=== PATIENT | female | born 1955 | race Caucasian/White ===

== ENCOUNTER 2020-11-18 13:13 | Emergency (ER) | payer MEDICARE, OTHER ==
[~2020-11-18] VITALS: Ht 157.5 cm; Wt 60.0 kg
[~2020-11-18 13:13] MED LIST: ACET325T9 PO; AMLO-186 PO; ASPI81TA59 PO; ATOR40TA59 PO; DIPH25CA23 PO; DULA0.75 SQ; HALO100V IM; LEVO175T5 PO; LEVO750T31 PO; MELA5CAP PO; METF10007 PO; MIRT-36 PO
--- NOTE | 2020-11-18 13:36 | PHYS DOC ---
Past Medical History Past Medical History: Anxiety, Diabetes-Type II, Hypertension, Hypothyroid, Schizophrenia, Other Additional Past Medical Histor: DYSPHAGIA, APHASIA, GEN MUSCLE WEAKNESS Past Surgical History: Other Additional Past Surgical Histo: UNKNOWN Smoking Status: Never Smoker Alcohol Use: None General Adult EDM: Chief Complaint: ASPIRATION HPI: HPI: Patient is a 64-year-old female who has history of stroke in the past, difficulty swallowing history, [facility], she was eating and choked on her food. Therefore she was brought here for evaluation, her chest x-ray was normal, patient was in no acute distress, she feel much better n ow, denies any chest pain, no cough, no fever, no trouble breathing. Review of Systems: Review of Systems: Constitutional: Denies fever or chills. [] Eyes: Denies change in visual acuity. [] HENT: Denies nasal congestion or sore throat. [] Respiratory: Denies cough or shortness of breath. [] Cardiovascular: Denies chest pain or edema. [] GI: Denies abdominal pain, nausea, vomiting, bloody stools or diarrhea. [] : Denies dysuria. [] Musculoskeletal: Denies back pain or joint pain. [] Integument: Denies rash. [] Neurologic: Denies headache, focal weakness or sensory changes. [] Endocrine: Denies polyuria or polydipsia. [] Lymphatic: Denies swollen glands. [] Psychiatric: Denies depression or anxiety. [] Heart Score: Risk Factors: Risk Factors: DM, Current or recent (<one month) smoker, HTN, HLP, family history of CAD, obesity. Risk Scores: Score 0 - 3: 2.5% MACE over next 6 weeks - Discharge Home Score 4 - 6: 20.3% MACE over next 6 weeks - Admit for Clinical Observation Score 7 - 10: 72.7% MACE over next 6 weeks - Early Invasive Strategies Allergies: Allergies: Allergies Coded Allergies Type Severity Reaction Last Updated Verified codeine Allergy Intermediate 20 Yes Physical Exam: PE: Constitutional: Well developed, well nourished, no acute distress, non-toxic appearance. [] HENT: Normocephalic, atraumatic, bilateral external ears normal, oropharynx moist, no oral exudates, nose normal. [] Eyes: PERRLA, EOMI, conjunctiva normal, no discharge. [] Neck: Normal range of motion, no tenderness, supple, no stridor. [] Cardiovascular:Heart rate regular rhythm, no murmur [] Lungs & Thorax: Bilateral breath sounds clear to auscultation [] Abdomen: Bowel sounds normal, soft, no tenderness, no masses, no pulsatile masses. [] Skin: Warm, dry, no erythema, no rash. [] Back: No tenderness, no CVA tenderness. [] Extremities: No tenderness, no cyanosis, no clubbing, ROM intact, no edema. [] Neurologic: awake, alert Psychologic: Affect normal, judgement normal, mood normal. [] EKG: EKG: [] Radiology/Procedures: Radiology/Procedures: [][facility] [address] [place] [address] IMAGING REPORT Signed PATIENT: CRISELDA ARCE ACCOUNT: [id number] : 1955 LOCATION: ER AGE: 64 SEX: F EXAM STATUS: PRE ER ORD. PHYSICIAN: SANDRINE LOWE DO REASON: aspirating food PROCEDURE: CHEST AP ONLY EXAM: Chest, single view. HISTORY: Aspiration. COMPARISON: 01/07/2020 FINDINGS: A frontal view of the chest obtained. There is no infiltrate, pleural effusion or pneumothorax. The heart is normal in size. There is decreased left subacromial space likely due to an incidental rotator cuff tear. IMPRESSION: No acute pulmonary finding. Electronically signed by: Vania Garcia MD (11/18/2020 1:58 PM) [facility] DICTATED and SIGNED BY: VANIA GARCIA MD DATE: 11/18/20 [id number] Course & Med Decision Making: Course & Med Decision Making Pertinent Labs and Imaging studies reviewed. (See chart for details) Patient is a 64-year-old female who has history of stroke in the past, difficulty swallowing history, [facility], she was eating and choked on her food. Therefore she was brought here for evaluation, her chest x-ray was normal, patient was in no acute distress, she feel much better now, denies any chest pain, no cough, no fever, no trouble breathing. [facility]. Dragon Disclaimer: Dragon Disclaimer: This electronic medical record was generated, in whole or in part, using a voice recognition dictation system. Departure Departure Impression: Primary Impression: Aspiration of food Disposition: 01 DC HOME SELF CARE/HOMELESS Condition: STABLE Referrals: CHARLES PEREZ MD (PCP) follow up with your doctor as needed Patient Instructions: Aspiration Precautions Additional Instructions: Thank you for visiting our Emergency Department. We appreciate you trusting us with your care. If any additional problems come up don't hesitate to return to visit us. Please follow up with your primary care provider so they can plan additional care if needed and know about the problem that you had. If symptoms worsen come back to the Emergency Department. Any concerning symptoms that start such as chest pain, shortness of air, weakness or numbness on one side of the body, running high fevers or any other concerning symptoms return to the ER. SANDRINE LOWE DO Nov 18, 2020 13:36
--- NOTE | 2020-11-18 14:01 | RAD ---
EXAM: Chest, single view. HISTORY: Aspiration. COMPARISON: 01/07/2020 FINDINGS: A frontal view of the chest obtained. There is no infiltrate, pleural effusion or pneumotho rax. The heart is normal in size. There is decreased left subacromial space likely due to an incident al rotator cuff tear. IMPRESSION: No acute pulmonary finding. Electronically signed by: Vania Sparks MD (11/18/2020 1:58 PM) [facility]
[2020-11-18 16:05] VITALS: BP 118/72
== END 2020-11-18 19:19 | disposition home or self-care (01) ==
LOC: ER 13:13
DX: T17.920A Food in respiratory tract, part unspecified causing asphyxiation, initial encounter (principal); E11.9 Type 2 diabetes mellitus without complications; I10 Essential (primary) hypertension; E03.9 Hypothyroidism, unspecified; F20.9 Schizophrenia, unspecified; F41.9 Anxiety disorder, unspecified; Z86.73 Personal history of transient ischemic attack (TIA), and cerebral infarction without residual deficits; Z88.5 Allergy status to narcotic agent; X58.XXXA Exposure to other specified factors, initial encounter; Y93.89 Activity, other specified; Y92.89 Other specified places as the place of occurrence of the external cause; Y99.8 Other external cause status
CPT/HCPCS: 71045; 99285-25

== ENCOUNTER 2021-05-24 22:59 | Emergency (ER) | payer MEDICARE, OTHER ==
[~2021-05-24] VITALS: Ht 162.6 cm; Wt 51.5 kg
--- NOTE | 2021-05-24 23:11 | ED.ADGEN ---
Past Medical History Past Medical History: Anxiety, Arthritis, CVA, Diabetes-Type II, High Cho lesterol, Hypertension, Hypothyroid, Schizophrenia, Other Additional Past Medical Histor: DYSPHAGIA, APHASIA, GEN MUSCLE WEAKNESS Past Surgical History: Other Additional Past Surgical Histo: UNKNOWN Smoking Status: Never Smoker Alcohol Use: None General Adult HPI: HPI: Patient is a 65 year old female brought in from nursing facility after a fall. Patient rolled out of bed and hit her head on the floor causing a laceration above her left eyebrow. There was no loss of consciousness. Patient is alert and oriented x1 and is at her baseline per EMS report. Patient is not on blood thinners per documentation sent, last known tetanus not sent by nursing facility, and unable to contact nursing facility regarding last tetanus. Review of Systems: Review of Systems: All other systems within normal limits except for as noted in the HPI Current Medications: Current Medications Medications (Trade) Dose Ordered Sig/Debi Start Time Stop Time Status Last Admin Dose Admin Diphtheria/ Tetanus/Acell Pertussis (ADACEL TDap SYRINGE) 0.5 ml ONCE ONCE 05/24/21 23:30 05/24/21 23:31 DC 05/24/21 23:53 0.5 ML Tetracaine/ Epinephrine/ Lidocaine (Let (Kytk-Umbkyqw-Flwer) Gel) 3 ml 1X ONCE 05/24/21 23:15 05/24/21 23:16 DC 05/24/21 23:07 3 ML Allergies: Allergies: Allergies Coded Allergies Type Severity Reaction Last Updated Verified codeine Allergy Intermediate 01/06/20 Yes Physical Exam: PE: Constitutional: Well developed, well nourished, no acute distress, non-toxic appearance. [] HENT: Normocephalic, atraumatic, bilateral external ears normal, nose normal. [] Eyes: PERRLA, conjunctiva normal, no discharge. [] Neck: No rigidity, supple, no stridor. C-collar in place, no C-spine tenderness step-off or deformity [] Cardiovascular: Regular rate and rhythm, brisk cap refill [] Lungs & Thorax: Non labored symmetric respirations, no tachypnea or respiratory distress [] Abdomen: Soft, nondistended. Skin: Warm, dry, no erythema, no rash. 2 cm linear laceration to left forehead [] Back: Unremarkable Extremities: No deformities, range of motion grossly intact, no lower extremity edema [] Neurologic: Alert and oriented X 1, no focal deficits noted. [] Psychologic: Affect normal, judgement normal, mood normal. [] Current Patient Data: Vital Signs: Vital Signs Date Time Temp Pulse Resp B/P (MAP) Pulse Ox O2 Delivery O2 Flow Rate FiO2 05/24/21 23:00 98.0 93 16 129/83 (87) 93 Room Air 98.0 EKG: EKG: [] Heart Score: C/O Chest Pain: No Risk Factors: Risk Factors: DM, Current or recent (<one month) smoker, HTN, HLP, family history of CAD, obesity. Risk Scores: Score 0 - 3: 2.5% MACE over next 6 weeks - Discharge Home Score 4 - 6: 20.3% MACE over next 6 weeks - Admit for Clinical Observation Score 7 - 10: 72.7% MACE over next 6 weeks - Early Invasive Strategies Radiology/Procedures: Radiology/Procedures: [facility] [address] [place] [address] IMAGING REPORT Signed PATIENT: CRISELDA ARCE ACCOUNT: [id number] : 1955 LOCATION: ER AGE: 65 SEX: F EXAM STATUS: PRE ER ORD. PHYSICIAN: DOUGLAS JORDAN MD REASON: fall, HEAD INJURY PROCEDURE: CT HEAD AND CERVICAL SPINE WO Examination: CT head and cervical spine without contrast CT HEAD INDICATION: Reason: fall, HEAD INJURY / Spl. Instructions: / History: COMPARISON: None Available. Exposure: One or more of the following individualized dose reduction techniques were utilized for this examination: 1. Automated exposure control 2. Adjustment of the mA and/or kV according to patient size 3. Use of iterative reconstruction technique TECHNIQUE: 5 mm contiguous axial images were obtained from the skull base to the vertex in both bone and soft tissue algorithm. FINDINGS: Moderate bilateral periventricular white matter hypodensities likely chronic small vessel ischemic changes. Mild soft tissue swelling identified in the left forehead region tiny foci of air likely secondary to injury. Encephalomalacia identified in the bilateral cerebellum. No evidence of acute intracranial hemorrhage. No extra-axial fluid collections. No mass effect or midline shift. Ventricular size is appropriate. Basal cisterns are patent. No fractures identified.Gomez-white differentiation is preserved.Globes and orbits are within normal limits. Paranasal sinuses and mastoid air cells are clear. CT CERVICAL SPINE INDICATION: Reason: fall, HEAD INJURY / Spl. Instructions: / History: COMPARISON: None Available. Technique: 2.5 mm contiguous axial images were obtained from the skull base through the cervicothoracic junction in both bone and soft tissue algorithm. Additional sagittal and coronal reconstructions were also performed. FINDINGS: Vertebral body height and alignment are maintained. Cervical lordosis is preserved. The lateral masses of C1 are aligned upon C2. No fractures identified. The bony canal is patent throughout. Moderate intervertebral disc height loss identified in the cervical spine likely degenerative changes. The paraspinous soft tissues are unremarkable. Visualized intracranial contents are unremarkable. Moderate emphysematous changes apical lungs.. IMPRESSION: 1. No acute intracranial findings. Moderate bilateral periventricular white matter hypodensities likely chronic small vessel ischemic changes. 2. Mild soft tissue swelling identified in the left forehead region tiny foci of air likely secondary to injury. 3. No acute fracture cervical spine. 4. Moderate degenerative changes cervical spine. Electronically signed by: Eder Solitario MD (05/24/2021 11:39 PM) [id number] DICTATED and SIGNED BY: EDER SOLITARIO MD DATE: 05/24/21 [id number] 0 [] Course & Med Decision Making: Course & Med Decision Making Pertinent Labs and Imaging studies reviewed. (See chart for details) [] Patient was prepped and draped in normal fashion, wound irrigated and cleansed with normal saline. The tube cm wound was anesthetized with LET. Depth of wound was examined and no foreign bodies found. Wound was approximated with 5-0 Ethilon suture in a simple erupted pattern. 7 Sutures placed without complication. Wound was not dressed a nonadherent bandage, but] antibiotic ointment was Dragon Disclaimer: Dragon Disclaimer: This electronic medical record was generated, in whole or in part, using a voice recognition dictation system. Departure Departure Impression: Primary Impression: Fall Disposition: HOME / SELF CARE / HOMELESS Condition: STABLE Referrals: CHARLES PEREZ MD (PCP) Patient Instructions: Sutured Wound Care Additional Instructions: Follow-up with primary care provider for suture level in 5 to 7 days DOUGLAS JORDAN MD May 24, 2021 23:11
[2021-05-24] MEDS ORDERED: LIDOCAINE/EPI/TETRACAINE TOPICAL GEL 3 ML. TP ONE (23:15)
[2021-05-24] MEDS ORDERED: DIPH,PERTUSS(ACELL),TET VAC/PF 0.5 ML SYRINGE. VAX IM ONE (23:30)
--- NOTE | 2021-05-24 23:41 | RAD ---
Examination: CT head and cervical spine without contrast CT HEAD INDICATION: Reason: fall, HEAD INJURY / Spl. Instructions: / History: COMPARISON: None Available. Exposure: One or more of the following individualized dose reduction techniques were utilized for thi s examination: 1. Automated exposure control 2. Adjustment of the mA and/or kV according to patient size 3. Use of iterative reconstruction technique TECHNIQUE: 5 mm contiguous axial images were obtained from the skull base to the vertex in both bone and soft tissue algorithm. FINDINGS: Moderate bilateral periventricular white matter hypodensities likely chronic small vessel ischemic ch anges. Mild soft tissue swelling identified in the left forehead region tiny foci of air likely secon livier to injury. Encephalomalacia identified in the bilateral cerebellum. No evidence of acute intracranial hemorrhage. No extra-axial fluid collections. No mass effect or midline shift. Ventricular size is appropriate. Basal cisterns are patent. No fractures identified.Gomez-white differentiation is preserved.Globes and orbits are within normal l imits. Paranasal sinuses and mastoid air cells are clear. CT CERVICAL SPINE INDICATION: Reason: fall, HEAD INJURY / Spl. Instructions: / History: COMPARISON: None Available. Technique: 2.5 mm contiguous axial images were obtained from the skull base through the cervicothorac ic junction in both bone and soft tissue algorithm. Additional sagittal and coronal reconstructions were also performed. FINDINGS: Vertebral body height and alignment are maintained. Cervical lordosis is preserved. The l ateral masses of C1 are aligned upon C2. No fractures identified. The bony canal is patent throughout. Moderate intervertebral disc height loss identified in the cervical spine likely degenerative changes . The paraspinous soft tissues are unremarkable. Visualized intracranial contents are unremarkable. M oderate emphysematous changes apical lungs.. IMPRESSION: 1. No acute intracranial findings. Moderate bilateral periventricular white matter hypodensities lik adarsh chronic small vessel ischemic changes. 2. Mild soft tissue swelling identified in the left forehead region tiny foci of air likely secondar y to injury. 3. No acute fracture cervical spine. 4. Moderate degenerative changes cervical spine. Electronically signed by: Eder Solitario MD (05/24/2021 11:39 PM) [id number]
[2021-05-25] MEDS ORDERED: NEOMY/BACITR/POLYMYXIN OINT PACKET. TP ONE (00:15)
[2021-05-25 00:53] VITALS: BP 202/109
== END 2021-05-25 01:40 | disposition home or self-care (01) ==
LOC: ER 22:59
DX: S01.112A Laceration without foreign body of left eyelid and periocular area, initial encounter (principal); E78.00 Pure hypercholesterolemia, unspecified; E11.9 Type 2 diabetes mellitus without complications; I10 Essential (primary) hypertension; E03.9 Hypothyroidism, unspecified; F20.9 Schizophrenia, unspecified; Z86.73 Personal history of transient ischemic attack (TIA), and cerebral infarction without residual deficits; Z88.5 Allergy status to narcotic agent; W06.XXXA Fall from bed, initial encounter; Y93.89 Activity, other specified; Y92.89 Other specified places as the place of occurrence of the external cause; Y99.8 Other external cause status
CPT/HCPCS: 12011; 70450; 72125; 90471; 90715; 99284; 99285-25

== ENCOUNTER 2022-03-21 22:43 | Emergency (ER) | payer MEDICARE, OTHER ==
[~2022-03-21] VITALS: Ht 152.4 cm; Wt 52.0 kg
[2022-03-21] MEDS ORDERED: DIPHTH,PERTUSS(ACELL),TET TOX 0.5 ML DISP.SYRIN. VAX IM ONE (23:30)
--- NOTE | 2022-03-22 00:27 | PHYS DOC ---
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 Patient reports she stumbled and caught herself on her wheelchair wrong lacerating her right hand and forearm. Patient denies pain with movement of her elbow hand or fingers. Patient states her hand does not really hurt. Patient states she has small skin tears because her skin "is thin these days". Patient reports her last tetanus immunization was greater than 5 years ago. Patient denies hitting her head, denies syncopal or near syncopal episodes, states she did not fall to the ground, states she caught herself but accidentally tore her skin doing so. Patient denies other physical complaints or physical concerns. Review of Systems: Review of Systems: 14 body systems of review of systems have been reviewed. See HPI for pertinent positives and negative responses, otherwise all other systems are negative, nonpertinent or noncontributory. Constitutional: Negative except as outlined in HPI above. Skin: Negative except as outlined in HPI above. Eyes: Negative except as outlined in HPI above. HENT: Negative except as outlined in HPI above. Respiratory: Negative except as outlined in HPI above. Cardiovascular: Negative except as outlined in HPI above. GI: Negative except as outlined in HPI above. : Negative except as outlined in HPI above. Musculoskeletal: Negative except as outlined in HPI above. Integument: Negative except as outlined in HPI above. Neurologic: Negative except as outlined in HPI above. Endocrine: Negative except as outlined in HPI above. Lymphatic: Negative except as outlined in HPI above. Psychiatric: Negative except as outlined in HPI above. Heart Score: C/O Chest Pain: No Risk Factors: Risk Factors: DM, Current or recent (<one month) smoker, HTN, HLP, family history of CAD, obesity. Risk Scores: Score 0 - 3: 2.5% MACE over next 6 weeks - Discharge Home Score 4 - 6: 20.3% MACE over next 6 weeks - Admit for Clinical Observation Score 7 - 10: 72.7% MACE over next 6 weeks - Early Invasive Strategies Current Medications: Current Medications Medications (Trade) Dose Ordered Sig/Debi Start Time Stop Time Status Last Admin Dose Admin Diphtheria/ Tetanus/Acell Pertussis (Boostrix) 0.5 ml ONCE ONCE 03/21/22 23:30 03/21/22 23:31 DC Allergies: Allergies: Allergies Coded Allergies Type Severity Reaction Last Updated Verified codeine Allergy Intermediate 01/06/20 Yes Physical Exam: PE: Constitutional: Well developed, well nourished, no acute distress, non-toxic appearance. 66-year-old female in no apparent distress. HENT: Normocephalic, atraumatic. Eyes: Conjunctiva normal, no discharge. Neck: Normal range of motion, no stridor. Cardiovascular: No cyanosis appreciated, distal cap refill less than 2 seconds. Lungs & Thorax: Patient is in no respiratory distress, no audible adventitious lung sounds appreciated. Abdomen: Nontender, no abnormalities noted. Skin: Warm, dry, no erythema, no rash. See extremity note for focused skin examination. Back: No tenderness, no deformities. Extremities: No tenderness, no cyanosis, no clubbing, ROM intact, no edema. Except for right hand, there is a superficial skin tear that is "L "shaped measuring 18 mm x 10 mm. Just adjacent to this laceration is a "C "shaped skin tear measuring 22 mm in length. There is a 5 mm "L "shaped laceration to posterior proximal forearm. There is no bleeding. Full AROM/PROM of adjacent joints. 2+ radial pulses equal bilateral upper extremities, distal cap refill is less than 2 seconds equal bilateral upper extremities. Neurologic: Alert and oriented X 3, normal motor function, normal sensory function, no focal deficits noted. Psychologic: Affect normal, judgement normal, mood normal. Current Patient Data: Vital Signs: Vital Signs Date Time Temp Pulse Resp B/P (MAP) Pulse Ox O2 Delivery O2 Flow Rate FiO2 03/21/22 22:50 98.5 115 18 144/82 (102) 100 98.5 EKG: EKG: [] Radiology/Procedures: Radiology/Procedures: [] Course & Med Decision Making: Course & Med Decision Making Pertinent Labs and Imaging studies reviewed. (See chart for details) 66-year-old female, vital signs reviewed, presents to the emergency department for evaluation of skin tears of the right hand and forearm just prior to arrival to the emergency department. The patient's tetanus immunization was brought up-to-date today in the emergency department with Tdap, the skin tears were cleansed with chlorhexidine soap, edges were approximated and glued with Dermabond skin glue. Patient tolerated well. Patient denies aches or pains, discussed with patient home care for glued skin wounds, return to ER precautions and concerns were reviewed, patient gave verbal understanding of and is amenable to ED discharge planning. Patient will be discharged back to senior living. Discussed with the patient all findings and diagnostic testing as well as the need to follow-up with their primary care provider for further evaluation and treatment or return to the ED if any new or worsening symptoms. Strict return precautions were also discussed at length, the patient voiced understanding and agreement with the discharge planning. The patient was nontoxic in appearance, in no apparent distress, and hemodynamically stable at the time of disposition. Dragon Disclaimer: Dragon Disclaimer: This electronic medical record was generated, in whole or in part, using a voice recognition dictation system. Departure Departure Impression: Primary Impression: Skin tear of right forearm without complication Qualified Codes: S51.811A - Laceration without foreign body of right forearm, initial encounter Additional Impressions: Skin tear of right hand without complication Qualified Codes: S61.411A - Laceration without foreign body of right hand, initial encounter Need for Tdap vaccination Disposition: 01 HOME / SELF CARE / HOMELESS Condition: GOOD Referrals: CHARLES PEREZ MD (PCP) Patient Instructions: Tissue Adhesive Wound Care Additional Instructions: You were seen in the emergency department for skin tears of the right forearm and right hand. These were cleansed with chlorhexidine soap, then the edges were approximated and glued/repaired with Dermabond skin glue. Please do not apply ointments or oils or lotions to the glued site, this glue will start to peel off after an approximate 7-day period. Please have your primary care physician reevaluate these repaired skin tears this week. Thank you for visiting our Emergency Department. It was a pleasure taking care of you today in the emergency department and we appreciate you trusting us with your care. If any additional problems come up don't hesitate to return to visit us. Please follow up with your primary care provider so they can plan additional care if needed and know about the problem that you had. If symptoms worsen come back to the Emergency Department. Any concerning symptoms that start such as chest pain, shortness of air, weakness or numbness on one side of the body, running high fevers or any other concerning symptoms return to the ER. HUSSEIN CHAPIN APRN March 22, 2022 00:27
[2022-03-22 01:42] VITALS: BP 140/97
== END 2022-03-22 01:50 | disposition home or self-care (01) ==
LOC: ER 22:43
DX: S51.811A Laceration without foreign body of right forearm, initial encounter (principal); S61.411A Laceration without foreign body of right hand, initial encounter; E11.9 Type 2 diabetes mellitus without complications; E80.0 Hereditary erythropoietic porphyria; I10 Essential (primary) hypertension; E03.9 Hypothyroidism, unspecified; Z86.73 Personal history of transient ischemic attack (TIA), and cerebral infarction without residual deficits; F20.9 Schizophrenia, unspecified; Z87.891 Personal history of nicotine dependence; Z88.5 Allergy status to narcotic agent; W23.0XXA Caught, crushed, jammed, or pinched between moving objects, initial encounter; Y93.89 Activity, other specified; Y92.89 Other specified places as the place of occurrence of the external cause; Y99.8 Other external cause status
CPT/HCPCS: 12002; 90471; 90715; 99285; 99283-25